=== PATIENT | female | born 1945 | race Caucasian/White ===

== ENCOUNTER 2017-02-17 12:34 | Outpatient (CLI) | payer MEDICARE ==
--- NOTE | 2017-02-17 15:55 | ULT ---
BILATERAL CAROTID DUPLEX ULTRASOUND: DATE: 02/17/17 HISTORY: Left carotid bruit. TECHNIQUE: Perez scale ultrasound with color flow and spectral Doppler imaging of the extracranial carotid arter y systems performed bilaterally. FINDINGS: There is plaque formation on either side. The peak systolic velocity in the right ICA measures 140 cm/second with an end-diastolic velocity of 29 cm/second and a systolic ratio of 1.33. The peak systolic velocity in the left ICA measures 86 cm/second with an end-diastolic velocity of 2 5 cm/second and a systolic ratio of 0.67. Flow in both vertebral arteries remains antegrade. IMPRESSION: 1. Moderate (50-69%) stenosis involving the right ICA. 2. Mild (less than 50%) stenosis involving the left ICA. POS: OFF
== END 2017-02-17 12:35 | disposition home or self-care (01) ==
LOC: SCSULT 12:34 → MERGE 13:00
PROVIDERS: ATTEND Internal Medicine
DX: I65.21 Occlusion and stenosis of right carotid artery (principal); I65.23 Occlusion and stenosis of bilateral carotid arteries
CPT/HCPCS: 93880

== ENCOUNTER 2017-04-06 17:32 | Inpatient (IN) | payer MEDICARE ==
[2017-04-06] MEDS ORDERED: Morphine 2 mg/2ml in 0.9% NaCl PF SYRINGE ONE (21:05)
--- NOTE | 2017-04-06 21:06 | PDOC.EVN ---
Event Note - Event Note Event Note: [id number] H&P dictated 1. Abdominal pain 2. Colitis 3. Acites PLAN: SEE ORDERS
[2017-04-06] MEDS ORDERED: Acetaminophen 325 MG TAB PO PRN (21:07)
[2017-04-06] MEDS: Sodium Chloride 0.9% 1,000 ML IV SCH (21:25)
[2017-04-06 23:40] VITALS: BMI 23.0
[2017-04-07] MEDS: Sodium Chloride 0.9% 1,000 ML IV SCH ×3 (00:13→16:11)
[2017-04-07] MEDS: metroNIDAZOLE 500 MG in Premix Bag 1 BAG IVPB SCH ×4 (00:14→20:43)
--- NOTE | 2017-04-07 00:56 | HP ---
DATE OF ADMISSION: 04/06/2017 CHIEF COMPLAINT: Abdominal pain. HISTORY OF PRESENT ILLNESS: The patient is a 71-year-old female with past medical history of hepatit is C, cirrhosis, diabetes mellitus type 2, now came to ER complaining of abdominal pain. The abdomin al pain started 2 weeks back. The abdominal pain is all over the abdomen, constant, no aggravating f actors, no relieving factor, associated with nausea also. The patient went to PCP 2 weeks back and h ad a CT abdomen done at that time in [place] and the patient was treated with antibiotics at that ti me, the CT did show small ascites and there is some inflammation in the right abdomen and the second and third portion of the duodenum, so the patient was treated with antibiotics. The patient said the symptoms did improve a little bit, but pain was persisted, that is why she came to the ER. The umu ent said the last bowel movement was 4 days back. Denies any fever, denies any chills, denies any ch est pain. PAST MEDICAL HISTORY: As per HPI. PAST SURGICAL HISTORY: Cholecystectomy, appendectomy, and tonsillectomy. SOCIAL HISTORY: Denies smoking, denies alcohol, denies any drugs. FAMILY HISTORY: Reviewed. REVIEW OF SYSTEMS: Constitutional: Denies any fever. Positive for chills. Eyes: Denies any visio n problems. Ears: Denies any hearing loss. Neck: Denies any neck pain. Cardiovascular system: D enies any chest pain, denies palpitations. Respiratory system: Denies any cough, denies sputum prod uction. Gastrointestinal: Positive for abdominal pain. Positive for nausea. Cranial nerve system: Denies syncope. Psychiatric: Denies depression or anxiety. Integumentary: Denies any rash. Mus culoskeletal. Denies any joint deformities. All other review of systems are reviewed and are negati ve. PHYSICAL EXAMINATION: CONSTITUTIONAL/VITAL SIGNS: At the time of H&P performed, blood pressure is 132/65, pulse ox 95%, he art rate 87, respiratory rate 20. GENERAL APPEARANCE: The patient appears comfortable. HEENT: Pupils are equal, round, and reactive to light. Anterior nares patent. Nose normal. Ears no rmal. Teeth intact. Tongue is moist. NECK: Supple, no JVD. CARDIOVASCULAR: S1 and S2 present. Regular rate and rhythm. No murmurs, no rubs, no gallops. RESPIRATORY: No wheezing, no rhonchi. Breath sounds bilaterally. GASTROINTESTINAL: Abdomen is distended, mild tender to palpate. No guarding, no organomegaly. MUSCULOSKELETAL: No edema. INTEGUMENTARY: No rashes seen. PSYCHIATRIC: Mood is appropriate at this time. LABORATORY DATA: At the time of H&P performed, white count 5.2, hemoglobin 13, and platelet count is 72. BMP showed sodium 137, potassium 3.5, chloride 104, CO2 of 24, BUN of 5, creatinine 0.76. IMAGING: CT abdomen and pelvis showed some ascites and evidence of cirrhosis or portal hypertension and there is mural thickening in the first and second portions of the duodenum also seen and there is mural thickening in the right colon and the transverse colon. ASSESSMENT AND PLAN: The patient is a 71-year-old female: 1. Acute colitis. Plan to start patient on IV Zosyn and Flagyl also and we will monitor the patient closely. We will go ahead and consult GI and General Surgery to evaluate the patient. 2. Nausea, p.r.n. antiemetics. 3. Cirrhosis and ascites. We will go ahead and consult GI to evaluate the patient. We will monitor the patient closely. 4. History of diabetes mellitus, type 2. Monitor blood sugars. We will do insulin sliding scale. The case was discussed in detail with the patient.
[2017-04-07] MEDS: Morphine 4 MG/ML VIAL SLOW IVP PRN ×3 (01:53→14:18)
[2017-04-07] MEDS: Ondansetron HCl/PF 4 MG/2 ML Vial IVP PRN ×4 (01:53→20:41)
[2017-04-07] MEDS: Piperacillin/Tazobactam 3.375 GM in Sodium Chloride 0.9% 100 ML IVPB SCH ×2 (02:00→07:33)
[2017-04-07 06:01] LABS: #Lymphocytes 0.8 thou/uL (1.20-3.40); %Basophils 0.9 % (0.0-1.0); %Eosinophils 0.3 % (0.0-10.0); %Lymphocytes 28.6 % (21.0-51.0); %Monocytes 1.3 % (0.0-10.0); Hematocrit 38.5 % (36.0-47.0); Mean Platelet Volume 7.6 fL (7.4-10.4); Red Blood Cell (RBC) Count 3.58 mill/uL (4.20-5.40); White Blood Cell (WBC) Count 2.9 thou/uL (4.8-10.8)
[2017-04-07 06:04] LABS: ALT (SGPT) 38 U/L (8-55); AST (SGOT) 43 U/L (5-34); Alkaline Phosphatase 183 U/L (40-150); Anion Gap 10 mmol/L (10-20); BUN (Urea Nitrogen) 10 mg/dL (9.8-20.1); Bilirubin, Total 2.1 mg/dL (0.2-1.2); Calc. Creatinine Clearance 68 mL/min (70-130); Calcium 8.3 mg/dL (7.8-10.44); Carbon Dioxide 22 mmol/L (23-31); Chloride 109 mmol/L (98-107); Estimated GFR-MDRD 79; Globulin 3.5 g/dL (2.4-3.5); Protein, Total 6.1 g/dL (6.0-8.3)
[2017-04-07] MEDS ORDERED: Mag-Al 1200 mg/1200 mg/30 ML UDCUP PO PRN (07:25)
[2017-04-07] MEDS ORDERED: Loratadine 10 MG TAB PO PRN (07:25)
[2017-04-07] MEDS ORDERED: Eucerin (Mineral Oil/Petrolatum,White) 30 gm Jar TOP PRN (07:25)
[2017-04-07] MEDS ORDERED: Ondansetron ODT 4 MG TAB PO PRN (07:25)
[2017-04-07] MEDS ORDERED: Sodium Chloride 0.65% Nasal 44 ML BOT EA NARE PRN (07:25)
[2017-04-07] MEDS ORDERED: hydrALAZINE 20 MG/ML VIAL SLOW IVP PRN (07:25)
[2017-04-07] MEDS ORDERED: Loperamide HCl 2 MG CAP PO PRN (07:25)
[2017-04-07] MEDS ORDERED: Diabetic Tussin 200 MG/10 ML UDCUP PO PRN (07:25)
[2017-04-07] MEDS: Saccharomyces boulardii 250 MG CAP PO SCH (08:10)
[2017-04-07] MEDS ORDERED: Famotidine/PF 20 mg/2ml Vial SLOW IVP SCH (09:00)
--- NOTE | 2017-04-07 11:23 | PDOC.PN ---
- Subjective Encounter Start Date: 04/07/17 Encounter Start Time: 10:10 -: old records requested/rev Patient seen and examined. No overnight events, has nausea, abdomen discomfort - Objective Resuscitation Status: Resuscitation Status FULL:Full Resuscitation MAR Reviewed: Yes Vital Signs & Weight: Vital Signs (12 hours) Temp Pulse Resp BP Pulse Ox 04/07/17 08:00 97.8 F 73 16 116/62 96 04/07/17 04:00 97.9 F 73 18 120/62 97 04/06/17 23:34 97.9 F 76 18 129/61 97 Weight Weight 134 lb 4 oz I&O: 04/06/17 04/07/17 04/08/17 06:59 06:59 06:59 Intake Total 360 Balance 360 Result Diagrams: 04/07/17 04:23 04/07/17 04:23 Additional Labs: Accuchecks 04/07/17 04/07/17 04:34 01:26 POC Glucose 251 H 241 H Radiology Reviewed by me: Yes (CT abdomen) Phys Exam - Physical Examination Constitutional: NAD HEENT: PERRLA, moist MMs, sclera anicteric Neck: no JVD, supple Respiratory: no wheezing, no rales, no rhonchi Cardiovascular: RRR, no significant murmur, no rub Gastrointestinal: soft, positive bowel sounds ascites+, discomfort diffuse Musculoskeletal: no edema, pulses present Neurological: non-focal, normal sensation, moves all 4 limbs Lymphatic: no nodes Psychiatric: normal affect, A&O x 3 Skin: no rash, normal turgor Dx/Plan (1) Colitis Code(s): K52.9 - NONINFECTIVE GASTROENTERITIS AND COLITIS, UNSPECIFIED Status : Acute (2) Duodenitis Code(s): K29.80 - DUODENITIS WITHOUT BLEEDING Status: Acute (3) Leucopenia Code(s): D72.819 - DECREASED WHITE BLOOD CELL COUNT, UNSPECIFIED Status: Acute (4) Macrocytosis Code(s): D75.89 - OTHER SPECIFIED DISEASES OF BLOOD AND BLOOD-FORMING ORGANS Status: Acute (5) Thrombocytopenia Code(s): D69.6 - THROMBOCYTOPENIA, UNSPECIFIED Status: Acute (6) Cirrhosis of liver with ascites Code(s): K74.60 - UNSPECIFIED CIRRHOSIS OF LIVER Status: Chronic (7) Diabetes type 2, controlled Code(s): E11.9 - TYPE 2 DIABETES MELLITUS WITHOUT COMPLICATIONS Status: Chronic (8) Hepatitis C Code(s): B19.20 - UNSPECIFIED VIRAL HEPATITIS C WITHOUT HEPATIC COMA Status: Chronic (9) Splenomegaly Code(s): R16.1 - SPLENOMEGALY, NOT ELSEWHERE CLASSIFIED Status: Chronic - Plan cont current plan of care, continue antibiotics * DC surgery consult * GI consulted * send stool for infection * continue levaquin and flayl * florastor * start clear liquid diet * continue selected home meds * medication reviewed as below * symptomatic treatment. Review of Systems - Review of Systems Constitutional: negative: Fever, Chills, Sweats, Weakness, Malaise, Other Eyes: negative: Pain, Vision Change, Conjunctivae Inflammation, Eyelid Inflammation, Redness, Other ENT: negative: Ear Pain, Ear Discharge, Nose Pain, Nose Discharge, Nose Congestion, Mouth Pain, Mouth Swelling, Throat Pain, Throat Swelling, Other Respiratory: negative: Cough, Dry, Shortness of Breath, Hemoptysis, SOB with Excertion, Pleuritic Pain, Sputum, Wheezing Cardiovascular: negative: Chest Pain, Palpitations, Orthopnea, Paroxysmal Noc. Dyspnea, Edema, Light Headedness, Other Gastrointestinal: Nausea, Abdominal Pain Genitourinary: negative: Dysuria, Frequency, Incontinence, Hematuria, Retention , Other Musculoskeletal: negative: Neck Pain, Shoulder Pain, Arm Pain, Back Pain, Hand Pain, Leg Pain, Foot Pain, Other Skin: negative: Rash, Lesions, Devin, Bruising, Other - Medications/Allergies Allergies/Adverse Reactions: Allergies Allergy/AdvReac Type Severity Reaction Status Date / Time aspirin Allergy Verified 04/06/17 21:18 codeine Allergy Verified 04/06/17 21:18 hydrocodone Allergy Verified 04/06/17 21:18 methylprednisolone Allergy Verified 04/06/17 21:18 [From Medrol] Sulfa (Sulfonamide Allergy Verified 04/06/17 21:18 Antibiotics) Medications: Current Medications Acetaminophen (Tylenol) 650 mg PO Q4H PRN PRN Reason: Headache/Fever or Pain Al Hydroxide/Mg Hydroxide (Maalox) 15 ml PO Q4H PRN PRN Reason: Heartburn or Indigestion Famotidine (Pepcid) 20 mg SLOW IVP Q12HR [facility] Last Admin: 04/07/17 08:10 Dose: 20 mg Gabapentin (Neurontin) 600 mg PO [facility] Guaifenesin (Robitussin Sf) 200 mg PO Q4H PRN PRN Reason: Cough Hydralazine HCl (Apresoline) 10 mg SLOW IVP Q4H PRN PRN Reason: Systolic BP > 180 Metronidazole 500 mg/ Device 100 mls @ 100 mls/hr IVPB Q8HR [facility] Last Admin: 04/07/17 06:06 Dose: 100 mls Sodium Chloride (Normal Saline 0.9%) 1,000 mls @ 100 mls/hr IV .Q10H [facility] Last Admin: 04/07/17 07:24 Dose: Not Given Levofloxacin 500 mg/ Device 100 mls @ 100 mls/hr IVPB 0800 [facility] Last Admin: 04/07/17 08:10 Dose: 100 mls Insulin Detemir 30 units/ (Miscellaneous Medication) 0.3 mls @ 0 mls/hr SC [facility] PRN Reason: As Directed Loperamide HCl (Imodium) 2 mg PO PRN PRN PRN Reason: Diarrhea/Loose Stools Loratadine (Claritin) 10 mg PO DAILYPRN PRN PRN Reason: Sinus Symptoms Mineral Oil/White Petrolatum (Eucerin Cream) 0 gm TOP BIDPRN PRN PRN Reason: Dry Skin Morphine Sulfate (Morphine) 2 mg SLOW IVP Q4H PRN PRN Reason: Pain Last Admin: 04/07/17 07:20 Dose: 2 mg Ondansetron HCl (Zofran) 4 mg IVP Q6H PRN PRN Reason: Nausea/Vomiting Last Admin: 04/07/17 07:20 Dose: 4 mg Ondansetron HCl (Zofran Odt) 4 mg PO Q6H PRN PRN Reason: Nausea/Vomiting Saccharomyces Boulardii (Florastor) 250 mg PO DAILY [facility] Last Admin: 04/07/17 08:10 Dose: 250 mg Sodium Chloride ([place] Nasal [place] 0.65%) 0 ml EA NARE QIDPRN PRN PRN Reason: Nasal Congestion Tramadol HCl (Ultram) 50 mg PO Q6H PRN PRN Reason: Pain Trazodone HCl (Desyrel) 50 mg PO [facility]
[2017-04-07] MEDS ORDERED: Dextrose 5% in Water 1,000 ML IV PRN (11:39)
[2017-04-07] MEDS ORDERED: Dextrose 50% Abboject 50 ML SYRINGE SLOW IVP PRN (11:39)
[2017-04-07] MEDS: HumaLOG 300 UNITS/3 ML VIAL SC PRN (13:11)
[2017-04-07] MEDS ORDERED: Diazepam 5 MG TAB PO SCH ×2 (16:00→22:15)
[2017-04-07] MEDS: Pantoprazole 40 MG VIAL IVP SCH (20:41)
[2017-04-07] MEDS: Gabapentin 300 MG CAP PO SCH (20:42)
[2017-04-07] MEDS: traZODone HCl 50 MG TAB PO SCH (20:42)
[2017-04-07] MEDS ORDERED: Non-Formulary Item 1 EACH (Insulin Glargine,Hum.Rec.Anlog 30 UNIT) SQ SCH (21:00)
[2017-04-07] MEDS ORDERED: Insulin Detemir 100 UNITS/ML 30 UNITS in Pre-Filled Syringe 1 EACH SC SCH (21:00)
[2017-04-08 04:45] LABS: #Basophils 0.1 thou/uL (0.0-0.2); #Eosinphils 0.2 thou/uL (0.0-0.7); #Monocytes 0.6 thou/uL (0.11-0.59); #Neutrophils 4.9 thou/uL (1.40-6.50); %Basophils 0.6 % (0.0-1.0); %Eosinophils 2.6 % (0.0-10.0); %Lymphocytes 25.8 % (21.0-51.0); %Monocytes 7.1 % (0.0-10.0); ALT (SGPT) 38 U/L (8-55); AST (SGOT) 47 U/L (5-34); Alkaline Phosphatase 160 U/L (40-150); Anion Gap 7 mmol/L (10-20); BUN (Urea Nitrogen) 14 mg/dL (9.8-20.1); Bilirubin, Total 1.6 mg/dL (0.2-1.2); Calc. Creatinine Clearance 71 mL/min (70-130); Calcium 7.9 mg/dL (7.8-10.44); Carbon Dioxide 25 mmol/L (23-31); Chloride 110 mmol/L (98-107); Estimated GFR-MDRD 82; Globulin 3.1 g/dL (2.4-3.5); Mean Platelet Volume 7.3 fL (7.4-10.4); Protein, Total 5.6 g/dL (6.0-8.3); Red Blood Cell (RBC) Count 3.15 mill/uL (4.20-5.40); White Blood Cell (WBC) Count 7.7 thou/uL (4.8-10.8)
[2017-04-08] MEDS: metroNIDAZOLE 500 MG in Premix Bag 1 BAG IVPB SCH ×3 (05:34→21:29)
[2017-04-08] MEDS: Sodium Chloride 0.9% 1,000 ML IV SCH ×2 (06:08→14:11)
--- NOTE | 2017-04-08 06:31 | CON ---
DATE OF CONSULTATION: 04/07/2017 REASON FOR CONSULTATION: Abdominal pain, "colitis." HISTORY OF PRESENT ILLNESS: Ms. Weems is a pleasant 71-year-old female who is accompanied by her sergio ghter here at the bedside who was admitted to the hospital secondary to ongoing abdominal pain of unc lear etiology. She states that she has got a long history of cirrhosis and hepatitis C; the hepatiti s C has not been treated. She had been seen by physicians in [facility], but about 2 years ago, she switched her primary care to Dr. Rodriguez in [place]. More recently, about 2 weeks ago, she began to have epigastric and upper abdominal pain with nausea and vomiting. It is worse with movement and worse with eating. She does not recall an exact precipitating event but she had a CAT scan in [facility] in the outpatient setting on 03/27/2017, which showed some changes of COPD, cirrhosis with splenom egaly and a small amount of ascites and some "inflammation" within the right abdomen, predominantly i nvolving second and third portions of duodenum and right colon; however, there was no contrast given on that study. In February, she had had a CT scan for low back pain with mild to moderate degenerativ e disk disease and no signs of spinal stenosis. She had a carotid Doppler study in February with mild to moderate stenosis. The patient had not had any bowel movement in 4 days, had some gas. Pain was fairly constant and wor sening up to a 10. She has had diverticulitis in the past but not anything like this. She denies an y alcohol use or NSAID use. She reports that she had been previously treated with some empiric antib iotics by her primary physician last week without really any improvement. The patient had a repeat C AT scan today that showed worsening ascites since the previous study on the . Small bowel loops not significant for distention, mural thickening in the first and second portion of the duodenum and in the colon, but the colon changes were less prominent. There was stool throughout the colon. Agai n, IV contrast was not used. Daughter notes that also she had some tremulous episodes and had to be given Valium for. Also, she h ad had a slight rash on her right arm. PAST MEDICAL HISTORY: Diabetes since age about 20. PAST SURGICAL HISTORY: Cholecystectomy, appendectomy, and tonsillectomy. She has had a colonoscopy within the past couple of years in [place], which was reported as normal. She also reports she had an upper endoscopy there. She does not recall if she was ever told she had varices but she does not re cognize that term. ALLERGIES: Include ASPIRIN, CODEINE, HYDROCODONE, METHYLPREDNISOLONE, and SULFA DRUGS. SOCIAL HISTORY: The patient does not smoke, does not drink alcohol or use drugs. FAMILY HISTORY: Negative for colorectal cancer or liver disease. REVIEW OF SYSTEMS: Negative for weight loss, dysphagia, odynophagia, jaundice, or icterus. She does feel more bloated and swollen. She does have a history of chronic constipation. MEDICATIONS: Medications here, Tylenol, Maalox, D5 normal p.r.n., Pepcid 20 mg IV q.12 hours, Neuron tin, glucagon, hydralazine, insulin p.r.n., levofloxacin, loperamide, metronidazole, Ultram p.r.n., n ormal saline 100 an hour. PHYSICAL EXAMINATION: VITAL SIGNS: Temperature is 98, pulse 76, blood pressure is 115/65. LUNGS: Clear. HEART: Regular rate and rhythm without clicks or murmurs. ABDOMEN: Soft, mildly protuberant. There is no palpable hepatosplenomegaly. There is no rebound. There is no guarding. There is no evidence of inguinal hernias or midline hernias. EXTREMITIES: Reveal no clubbing, cyanosis or edema. There is mild spider angioma on the chest and b ack. LABORATORY STUDIES: White count 2.9, hemoglobin 12.7, platelet count 73,000, very similar to her cou nts since January. INR 1.3. Chemistries notable for sodium 137, potassium 4, chloride 109, bicarb chago 22, BUN and creatinine are 10 and 0.73, glucose 257, total bilirubin 2.1, AST and ALT are 43 an d 38, alkaline phosphatase 23, albumin 2.7. ASSESSMENT: Acute abdominal pain. She does have some thickening in the first and second portions of the duodenum. I reviewed those scans. There are no signs of bowel obstruction. She is not vomitin g. The pancreas does appear normal. Lipase was checked, which was normal at 28. Differential diagn osis includes peptic ulcer disease. She does not have a gallbladder any more. Biliary tract disease seems unlikely. Acute portal vein thrombosis could cause pain and cause new-onset ascites and that may be what is going on and that maybe being missed because she has had imaging with no contrast. Al ternatively, liver malignancy would be a concern as well. She has longstanding cirrhosis and now sig nificant pain and developing ascites. I suspect inflammatory changes in the upper abdomen are more r elated to portal hypertension than "colitis" as she shows no symptoms of colitis such as diarrhea or bleeding. RECOMMENDATIONS: 1. Change her to IV Protonix. 2. MRI 3 phase of the liver to evaluate for liver masses and also rule out acute portal vein thrombo sis. 3. EGD. 4. With regard to the CT scan changes, she has no signs of colitis. She has had a colonoscopy withi n the past couple of years that had been normal. I think these changes are probably more edematous c nithin.
[2017-04-08] MEDS: Saccharomyces boulardii 250 MG CAP PO SCH (08:05)
[2017-04-08] MEDS: Pantoprazole 40 MG VIAL IVP SCH ×2 (08:06→21:29)
[2017-04-08] MEDS: Ondansetron HCl/PF 4 MG/2 ML Vial IVP PRN (11:07)
--- NOTE | 2017-04-08 12:47 | PDOC.PN ---
- Subjective Encounter Start Date: 04/08/17 Encounter Start Time: 08:00 Subjective: had a episode of shaking last night which got resolved with valium -: no nausea now -: abd pain is better - Objective Resuscitation Status: Resuscitation Status FULL:Full Resuscitation MAR Reviewed: Yes Vital Signs & Weight: Vital Signs (12 hours) Temp Pulse Resp BP Pulse Ox 04/08/17 10:55 97.6 F 74 18 122/67 94 L 04/08/17 08:00 97.8 F 77 18 120/61 94 L 04/08/17 04:51 97.8 F 83 18 103/53 L 92 L Weight Admit Weight 134 lb Weight 134 lb I&O: 04/07/17 04/08/17 04/09/17 06:59 06:59 06:59 Intake Total 2420 Balance 2420 Result Diagrams: 04/08/17 03:06 04/08/17 03:06 Additional Labs: Accuchecks 04/08/17 04/08/17 04/08/17 12:33 10:59 04:50 POC Glucose 142 H 76 121 H 04/07/17 04/07/17 20:02 16:38 POC Glucose 305 H 266 H Phys Exam - Physical Examination HEENT: PERRLA, moist MMs Neck: no JVD, supple Respiratory: no wheezing, no rales Cardiovascular: RRR, no significant murmur Gastrointestinal: soft, no distention, positive bowel sounds Musculoskeletal: no edema, pulses present Neurological: non-focal, moves all 4 limbs Psychiatric: A&O x 3 Dx/Plan (1) Abdominal pain Code(s): R10.9 - UNSPECIFIED ABDOMINAL PAIN Status: Acute Qualifiers: Abdominal location: right upper quadrant Qualified Code(s): R10.11 - Right upper quadrant pain (2) Thrombocytopenia Code(s): D69.6 - THROMBOCYTOPENIA, UNSPECIFIED Status: Chronic (3) Cirrhosis of liver with ascites Code(s): K74.60 - UNSPECIFIED CIRRHOSIS OF LIVER Status: Chronic (4) Diabetes type 2, controlled Code(s): E11.9 - TYPE 2 DIABETES MELLITUS WITHOUT COMPLICATIONS Status: Chronic Qualifiers: Diabetes mellitus complication status: with unspecified complications Diabetes mellitus manager terminal insulin use: with halfway use Qualified Code(s) : E11.8 - Type 2 diabetes mellitus with unspecified complications; Z79.4 - terminal operations manager (current) use of insulin; Z79.4 - terminal operations manager (current) use of insulin; Z79.4 - terminal operations manager (current) use of insulin; Z79.4 - terminal operations manager (current) use of insulin (5) Hepatitis C Code(s): B19.20 - UNSPECIFIED VIRAL HEPATITIS C WITHOUT HEPATIC COMA Status: Chronic Qualifiers: Viral hepatitis chronicity: chronic Hepatic coma status: without hepatic coma Qualified Code(s): B18.2 - Chronic viral hepatitis C - Plan has elevated AFP, await MRI liver protocol -: is npo for EGD today -: continue gentle iv hydration until above are done -: hold insulin for now, is on levaquin and flagyl, may dc if ok with -: avoid valium in view of liver disease * . Review of Systems - Medications/Allergies Allergies/Adverse Reactions: Allergies Allergy/AdvReac Type Severity Reaction Status Date / Time aspirin Allergy Verified 04/06/17 21:18 codeine Allergy Verified 04/06/17 21:18 hydrocodone Allergy Verified 04/06/17 21:18 iodine Allergy Verified 04/08/17 10:46 methylprednisolone Allergy Verified 04/06/17 21:18 [From Medrol] Sulfa (Sulfonamide Allergy Verified 04/06/17 21:18 Antibiotics) Medications: Current Medications Acetaminophen (Tylenol) 650 mg PO Q4H PRN PRN Reason: Headache/Fever or Pain Al Hydroxide/Mg Hydroxide (Maalox) 15 ml PO Q4H PRN PRN Reason: Heartburn or Indigestion Dextrose/Water (Dextrose 50%) 25 gm SLOW IVP PRN PRN PRN Reason: Hypoglycemia Last Admin: 04/08/17 11:26 Dose: 25 gm Gabapentin (Neurontin) 600 mg PO HS [facility] Last Admin: 04/07/17 20:42 Dose: 600 mg Glucagon (Glucagon) 1 mg IM PRN PRN PRN Reason: Hypoglycemia Guaifenesin (Robitussin Sf) 200 mg PO Q4H PRN PRN Reason: Cough Hydralazine HCl (Apresoline) 10 mg SLOW IVP Q4H PRN PRN Reason: Systolic BP > 180 Metronidazole 500 mg/ Device 100 mls @ 100 mls/hr IVPB Q8HR [facility] Last Admin: 04/08/17 05:34 Dose: 100 mls Sodium Chloride (Normal Saline 0.9%) 1,000 mls @ 100 mls/hr IV .Q10H [facility] Last Admin: 04/08/17 06:08 Dose: Not Given Levofloxacin 500 mg/ Device 100 mls @ 100 mls/hr IVPB 0800 [facility] Last Admin: 04/08/17 08:03 Dose: 100 mls Dextrose/Water (D5w) 1,000 mls @ 0 mls/hr IV .Q0M PRN; As Directed PRN Reason: Hypoglycemia Insulin Human Lispro (Humalog) 0 units SC .MODERATE SLIDING SC PRN PRN Reason: Moderate Correctional Scale Last Admin: 04/07/17 13:11 Dose: 6 unit Insulin Human Lispro (Humalog) 0 units SC .BEDTIME SLIDING SC PRN PRN Reason: Bedtime Correctional Scale Loperamide HCl (Imodium) 2 mg PO PRN PRN PRN Reason: Diarrhea/Loose Stools Loratadine (Claritin) 10 mg PO DAILYPRN PRN PRN Reason: Sinus Symptoms Mineral Oil/White Petrolatum (Eucerin Cream) 0 gm TOP BIDPRN PRN PRN Reason: Dry Skin Morphine Sulfate (Morphine) 2 mg SLOW IVP Q4H PRN PRN Reason: Pain Last Admin: 04/07/17 14:18 Dose: 2 mg Ondansetron HCl (Zofran) 4 mg IVP Q6H PRN PRN Reason: Nausea/Vomiting Last Admin: 04/08/17 11:07 Dose: 4 mg Ondansetron HCl (Zofran Odt) 4 mg PO Q6H PRN PRN Reason: Nausea/Vomiting Pantoprazole Sodium (Protonix) 40 mg IVP Q12HR [facility] Last Admin: 04/08/17 08:06 Dose: 40 mg Saccharomyces Boulardii (Florastor) 250 mg PO DAILY [facility] Last Admin: 04/08/17 08:05 Dose: 250 mg Sodium Chloride ([place] Nasal [place] 0.65%) 0 ml EA NARE QIDPRN PRN PRN Reason: Nasal Congestion Sodium Chloride (Flush - Normal Saline) 10 ml IVF PRN PRN PRN Reason: Saline Flush Sodium Chloride (Flush - Normal Saline) 10 ml IV Q12HR [facility] Last Admin: 04/08/17 08:11 Dose: 10 ml Tramadol HCl (Ultram) 50 mg PO Q6H PRN PRN Reason: Pain Trazodone HCl (Desyrel) 50 mg PO HS [facility] Last Admin: 04/07/17 20:42 Dose: 50 mg
[2017-04-08] MEDS ORDERED: Lidocaine 1% PF 5 ML VIAL ONE (15:13)
[2017-04-08] MEDS ORDERED: Promethazine HCl 25 MG/ML VIAL SLOW IVP PRN (15:54)
[2017-04-08] MEDS ORDERED: Ondansetron HCl/PF 4 MG/2 ML Vial IVP PRN (15:54)
[2017-04-08] MEDS ORDERED: Fentanyl 100 MCG/2 ML VIAL ONE (16:30)
[2017-04-08] MEDS: Morphine 4 MG/ML VIAL SLOW IVP PRN ×2 (17:48→21:40)
--- NOTE | 2017-04-08 18:18 | OP ---
DATE OF PROCEDURE: 04/08/2017 PROCEDURE: Esophagogastroduodenoscopy. PREOPERATIVE DIAGNOSES: Epigastric to diffuse abdominal pain. She has cirrhosis. OPERATIVE NOTE: Informed consent was obtained from the patient. She was sedated with total intraven ous anesthesia. The bite block was placed and the endoscope was advanced easily to the second portio n of the duodenum and retroflexion was performed in the stomach. The esophagus had moderate grade 2- 3 varices with a few red signs. She had moderate portal hypertensive gastropathy. There were no gas tric varices noted on retroflexed views. The pylorus and first and second portions of the duodenum w ere normal. IMPRESSION: 1. 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 2. Moderate portal hypertensive gastropathy. No gastric varices. 3. Otherwise normal esophagogastroduodenoscopy. RECOMMENDATIONS: 1. Start nadolol 20 mg daily. 2. If she does not tolerate the nadolol or if she has a problem with low blood sugars, then banding can be performed. 3. Alpha fetoprotein is noted to be elevated. We will await the MRI of the liver, which has been sc heduled.
[2017-04-08] MEDS: traMADol HCl 50 MG TAB PO PRN (18:19)
[2017-04-08] MEDS: traZODone HCl 50 MG TAB PO SCH (21:30)
[2017-04-08] MEDS: Gabapentin 300 MG CAP PO SCH (21:30)
[2017-04-09] MEDS: traMADol HCl 50 MG TAB PO PRN (00:08)
[2017-04-09] MEDS: Sodium Chloride 0.9% 1,000 ML IV SCH ×2 (00:18→10:14)
[2017-04-09] MEDS: Morphine 4 MG/ML VIAL SLOW IVP PRN ×2 (05:29→10:35)
[2017-04-09] MEDS: metroNIDAZOLE 500 MG in Premix Bag 1 BAG IVPB SCH ×3 (05:30→20:56)
[2017-04-09] MEDS ORDERED: Chloraseptic Spray 180 ml Bottle PO PRN (08:32)
[2017-04-09] MEDS: Saccharomyces boulardii 250 MG CAP PO SCH (10:12)
[2017-04-09] MEDS: Nadolol 40 MG TAB PO SCH (10:12)
[2017-04-09] MEDS: Pantoprazole 40 MG VIAL IVP SCH ×2 (10:13→20:56)
[2017-04-09] MEDS: Ondansetron HCl/PF 4 MG/2 ML Vial IVP PRN (10:29)
[2017-04-09] MEDS ORDERED: Bisacodyl 5 MG TAB PO PRN (12:10)
[2017-04-09] MEDS ORDERED: diphenhydrAMINE 25 MG CAP PO SCH (12:30)
--- NOTE | 2017-04-09 13:06 | PDOC.PN ---
- Subjective Encounter Start Date: 04/09/17 Encounter Start Time: 09:00 Subjective: abd pain is better -: no nausea or vomiting - Objective Resuscitation Status: Resuscitation Status FULL:Full Resuscitation MAR Reviewed: Yes Vital Signs & Weight: Vital Signs (12 hours) Temp Pulse Resp BP Pulse Ox 04/09/17 08:10 98.6 F 96 16 124/56 L 91 L 04/09/17 08:00 98.6 F 96 16 93 L Weight Admit Weight 134 lb Weight 134 lb I&O: 04/08/17 04/09/17 04/10/17 06:59 06:59 06:59 Intake Total 2420 120 Balance 2420 120 Result Diagrams: 04/08/17 03:06 04/08/17 03:06 Additional Labs: Accuchecks 04/09/17 04/09/17 04/08/17 11:07 05:22 20:21 POC Glucose 169 H 133 H 158 H 04/08/17 17:22 POC Glucose 93 Phys Exam - Physical Examination HEENT: PERRLA, moist MMs Neck: no JVD, supple Respiratory: no wheezing, no rales Cardiovascular: RRR, no significant murmur Gastrointestinal: soft, no distention Musculoskeletal: no edema, pulses present Neurological: non-focal, moves all 4 limbs Psychiatric: A&O x 3 Dx/Plan (1) Abdominal pain Code(s): R10.9 - UNSPECIFIED ABDOMINAL PAIN Status: Acute Qualifiers: Abdominal location: right upper quadrant Qualified Code(s): R10.11 - Right upper quadrant pain (2) Thrombocytopenia Code(s): D69.6 - THROMBOCYTOPENIA, UNSPECIFIED Status: Chronic (3) Cirrhosis of liver with ascites Code(s): K74.60 - UNSPECIFIED CIRRHOSIS OF LIVER Status: Chronic (4) Diabetes type 2, controlled Code(s): E11.9 - TYPE 2 DIABETES MELLITUS WITHOUT COMPLICATIONS Status: Chronic Qualifiers: Diabetes mellitus complication status: with unspecified complications Diabetes mellitus custodial insulin use: with custodial use Qualified Code(s) : E11.8 - Type 2 diabetes mellitus with unspecified complications; Z79.4 - ferry terminal agent (current) use of insulin; Z79.4 - residential (current) use of insulin; Z79.4 - residential (current) use of insulin; Z79.4 - ferry terminal agent (current) use of insulin (5) Hepatitis C Code(s): B19.20 - UNSPECIFIED VIRAL HEPATITIS C WITHOUT HEPATIC COMA Status: Chronic Qualifiers: Viral hepatitis chronicity: chronic Hepatic coma status: without hepatic coma Qualified Code(s): B18.2 - Chronic viral hepatitis C - 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 Review of Systems - Medications/Allergies Allergies/Adverse Reactions: Allergies Allergy/AdvReac Type Severity Reaction Status Date / Time aspirin Allergy Verified 04/06/17 21:18 codeine Allergy Verified 04/06/17 21:18 hydrocodone Allergy Verified 04/06/17 21:18 iodine Allergy Verified 04/08/17 10:46 methylprednisolone Allergy Verified 04/06/17 21:18 [From Medrol] Sulfa (Sulfonamide Allergy Verified 04/06/17 21:18 Antibiotics) Medications: Current Medications Acetaminophen (Tylenol) 650 mg PO Q4H PRN PRN Reason: Headache/Fever or Pain Al Hydroxide/Mg Hydroxide (Maalox) 15 ml PO Q4H PRN PRN Reason: Heartburn or Indigestion Bisacodyl (Dulcolax) 5 mg PO HSPRN PRN PRN Reason: CONSTIPATION Dextrose/Water (Dextrose 50%) 25 gm SLOW IVP PRN PRN PRN Reason: Hypoglycemia Last Admin: 04/08/17 11:26 Dose: 25 gm Diphenhydramine HCl (Benadryl) 25 mg PO NOW [facility] Stop: 04/09/17 14:30 Last Admin: 04/09/17 12:34 Dose: 25 mg Gabapentin (Neurontin) 600 mg PO HS [facility] Last Admin: 04/08/17 21:30 Dose: 600 mg Glucagon (Glucagon) 1 mg IM PRN PRN PRN Reason: Hypoglycemia Guaifenesin (Robitussin Sf) 200 mg PO Q4H PRN PRN Reason: Cough Hydralazine HCl (Apresoline) 10 mg SLOW IVP Q4H PRN PRN Reason: Systolic BP > 180 Metronidazole 500 mg/ Device 100 mls @ 100 mls/hr IVPB Q8HR [facility] Last Admin: 04/09/17 05:30 Dose: 100 mls Sodium Chloride (Normal Saline 0.9%) 1,000 mls @ 100 mls/hr IV .Q10H [facility] Last Admin: 04/09/17 10:14 Dose: Not Given Levofloxacin 500 mg/ Device 100 mls @ 100 mls/hr IVPB 0800 [facility] Last Admin: 04/09/17 10:11 Dose: 100 mls Dextrose/Water (D5w) 1,000 mls @ 0 mls/hr IV .Q0M PRN; As Directed PRN Reason: Hypoglycemia Insulin Human Lispro (Humalog) 0 units SC .MODERATE SLIDING SC PRN PRN Reason: Moderate Correctional Scale Last Admin: 04/07/17 13:11 Dose: 6 unit Insulin Human Lispro (Humalog) 0 units SC .BEDTIME SLIDING SC PRN PRN Reason: Bedtime Correctional Scale Loperamide HCl (Imodium) 2 mg PO PRN PRN PRN Reason: Diarrhea/Loose Stools Loratadine (Claritin) 10 mg PO DAILYPRN PRN PRN Reason: Sinus Symptoms Mineral Oil/White Petrolatum (Eucerin Cream) 0 gm TOP BIDPRN PRN PRN Reason: Dry Skin Morphine Sulfate (Morphine) 2 mg SLOW IVP Q4H PRN PRN Reason: Pain Last Admin: 04/09/17 10:35 Dose: 2 mg Nadolol (Corgard) 40 mg PO DAILY [facility] Last Admin: 04/09/17 10:12 Dose: 40 mg Ondansetron HCl (Zofran) 4 mg IVP Q6H PRN PRN Reason: Nausea/Vomiting Last Admin: 04/09/17 10:29 Dose: 4 mg Ondansetron HCl (Zofran Odt) 4 mg PO Q6H PRN PRN Reason: Nausea/Vomiting Pantoprazole Sodium (Protonix) 40 mg IVP Q12HR [facility] Last Admin: 04/09/17 10:13 Dose: 40 mg Phenol (Chloraseptic [place] 180 Ml Bot) 0 ml PO TIDPRN PRN PRN Reason: THROAT PAIN Last Admin: 04/09/17 10:10 Dose: 1 spr Saccharomyces Boulardii (Florastor) 250 mg PO DAILY [facility] Last Admin: 04/09/17 10:12 Dose: 250 mg Sodium Chloride ([place] Nasal [place] 0.65%) 0 ml EA NARE QIDPRN PRN PRN Reason: Nasal Congestion Sodium Chloride (Flush - Normal Saline) 10 ml IVF PRN PRN PRN Reason: Saline Flush Sodium Chloride (Flush - Normal Saline) 10 ml IV Q12HR [facility] Last Admin: 04/09/17 10:13 Dose: 10 ml Tramadol HCl (Ultram) 50 mg PO Q6H PRN PRN Reason: Pain Last Admin: 04/09/17 00:08 Dose: 50 mg Trazodone HCl (Desyrel) 50 mg PO HS [facility] Last Admin: 04/08/17 21:30 Dose: 50 mg
[2017-04-09] MEDS ORDERED: Polyethylene Glycol 3350 17 GM Packet PO SCH (14:30)
--- NOTE | 2017-04-09 18:05 | PRG ---
DATE OF SERVICE: 04/09/2017 SUBJECTIVE: Ms. Weems states her abdominal pain is better. She has had no bowel movements. She is supposed to get a Dulcolax suppository. She had an EGD yesterday, which showed portal gastropathy an d grade II varices with some red vanessa signs. She has been started on nadolol 40 mg p.o. q. day. She is without complaints today. OBJECTIVE: VITAL SIGNS: Temperature is 98, pulse 96, blood pressure is 124/56. LUNGS: Clear. CARDIAC: Regular without clicks or murmurs. ABDOMEN: Soft, mildly protuberant. There is no rebound. There is no guarding. LABORATORY STUDIES: None today. ASSESSMENT: 1. Hepatitis C. 2. Cirrhosis. 3. AST mildly elevated to 100. 4. Upper abdominal pain. I suspect this can be related to subacute portal vein thrombosis, imaging has failed to reveal this so far as she has had no contrasting imaging. She is going to have an MRI today, 3-phase of liver, but MRI machine is broken. PLAN: 1. We will order CT with oral and IV contrast of the abdomen with 3-phase liver evaluation. She has been started on steroids and Benadryl and that probably will happen for her at least 12 hours. 2. Constipation. Recommend MiraLax daily.
[2017-04-09] MEDS ORDERED: predniSONE 50 MG TAB PO SCH (20:00)
[2017-04-09] MEDS: Gabapentin 300 MG CAP PO SCH (20:55)
[2017-04-09] MEDS: traZODone HCl 50 MG TAB PO SCH (20:55)
[2017-04-09] MEDS: diphenhydrAMINE 25 MG CAP PO PRN (21:30)
[2017-04-10] MEDS ORDERED: predniSONE 50 MG TAB PO SCH ×2 (02:00→08:00)
[2017-04-10] MEDS: diphenhydrAMINE 25 MG CAP PO PRN (02:31)
[2017-04-10] MEDS: metroNIDAZOLE 500 MG in Premix Bag 1 BAG IVPB SCH (05:32)
[2017-04-10] MEDS ORDERED: diphenhydrAMINE 50 MG CAP PO SCH (08:00)
[2017-04-10 08:17] LABS: #Basophils 0.1 thou/uL (0.0-0.2); #Eosinphils 0.1 thou/uL (0.0-0.7); #Lymphocytes 1.3 thou/uL (1.20-3.40); #Monocytes 0.1 thou/uL (0.11-0.59); #Neutrophils 3.1 thou/uL (1.40-6.50); %Basophils 1.1 % (0.0-1.0); %Eosinophils 2.9 % (0.0-10.0); %Lymphocytes 27.2 % (21.0-51.0); %Monocytes 1.4 % (0.0-10.0); Hematocrit 41.8 % (36.0-47.0); Mean Platelet Volume 7.7 fL (7.4-10.4); Red Blood Cell (RBC) Count 3.87 mill/uL (4.20-5.40); White Blood Cell (WBC) Count 4.6 thou/uL (4.8-10.8)
[2017-04-10 08:30] LABS: ALT (SGPT) 47 U/L (8-55); AST (SGOT) 44 U/L (5-34); Alkaline Phosphatase 176 U/L (40-150); Anion Gap 10 mmol/L (10-20); BUN (Urea Nitrogen) 17 mg/dL (9.8-20.1); Calc. Creatinine Clearance 60 mL/min (70-130); Calcium 8.3 mg/dL (7.8-10.44); Carbon Dioxide 24 mmol/L (23-31); Chloride 107 mmol/L (98-107); Estimated GFR-MDRD 68; Globulin 3.4 g/dL (2.4-3.5); Protein, Total 5.9 g/dL (6.0-8.3)
--- NOTE | 2017-04-10 10:03 | CT ---
CT ABDOMEN AND EPLVIS WITH AND WITHOUT CONTRAST: HISTORY: Liver mass protocol. Evaluate for portal vein thrombosis. COMPARISON: CT abdomen and pelvis 06/06/16. FINDINGS: There is near-complete thrombosis of the superior mesenteric vein seen to the portal vein. There is arterial hyperenhancement of the portal venous due to cavernous transformation from the hepatic arter ies. The spleen is enlarged. There appears to be some peripheral splenic hypoenhancement near the anterio r and posterior margins. The hepatic contour is nodular. Evaluation for hepatic mass is limited. Moderate ascites. Congestive changes of the ascending colon. Dense calcifications of the aorta. Ex tensive atherosclerotic plaque of the aortoiliac system. The kidneys are unremarkable. Adrenal glands are unremarkable. There are congestive changes of the proximal small bowel including duodenum. IMPRESSION: 1. 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 This limits evaluation for underlying mass. Evaluation for hepatic mass has to be performed with a liver protocol MRI abdomen. 2. Congestive changes of the ascending colon and duodenum. 3. Cirrhosis, portal hypertension, and splenomegaly. POS: [facility]
[2017-04-10] MEDS: Saccharomyces boulardii 250 MG CAP PO SCH (10:18)
[2017-04-10] MEDS: Polyethylene Glycol 3350 17 GM Packet PO SCH (10:18)
[2017-04-10] MEDS: Nadolol 40 MG TAB PO SCH (10:18)
[2017-04-10] MEDS: HumaLOG 300 UNITS/3 ML VIAL SC PRN ×3 (13:33→21:16)
--- NOTE | 2017-04-10 14:56 | PDOC.PN ---
- Subjective Encounter Start Date: 04/10/17 Encounter Start Time: 12:00 Subjective: mild abd dyscomfort, no nausea - Objective Resuscitation Status: Resuscitation Status FULL:Full Resuscitation MAR Reviewed: Yes Vital Signs & Weight: Vital Signs (12 hours) Temp Pulse Resp BP Pulse Ox 04/10/17 08:00 97.5 F L 59 L 12 95 04/10/17 07:52 97.5 F L 59 L 12 133/65 95 Weight Admit Weight 134 lb Weight 134 lb I&O: 04/09/17 04/10/17 04/11/17 06:59 06:59 06:59 Intake Total 1120 300 Balance 1120 300 Result Diagrams: 04/10/17 08:00 04/10/17 08:00 Additional Labs: Accuchecks 04/10/17 04/10/17 04/09/17 11: 04:40 20:49 POC Glucose 286 H 178 H 225 H 04/09/17 16:36 POC Glucose 200 H Phys Exam - Physical Examination HEENT: PERRLA, moist MMs Neck: no JVD, supple Respiratory: no wheezing, no rales Cardiovascular: RRR, no significant murmur Gastrointestinal: soft, positive bowel sounds no rigidity Musculoskeletal: no edema, pulses present Neurological: non-focal, moves all 4 limbs Psychiatric: A&O x 3 Dx/Plan (1) Abdominal pain Code(s): R10.9 - UNSPECIFIED ABDOMINAL PAIN Status: Acute Qualifiers: Abdominal location: right upper quadrant Qualified Code(s): R10.11 - Right upper quadrant pain (2) Thrombocytopenia Code(s): D69.6 - THROMBOCYTOPENIA, UNSPECIFIED Status: Chronic (3) Cirrhosis of liver with ascites Code(s): K74.60 - UNSPECIFIED CIRRHOSIS OF LIVER Status: Chronic (4) Diabetes type 2, controlled Code(s): E11.9 - TYPE 2 DIABETES MELLITUS WITHOUT COMPLICATIONS Status: Chronic Qualifiers: Diabetes mellitus complication status: with unspecified complications Diabetes mellitus usp insulin use: with usp use Qualified Code(s) : E11.8 - Type 2 diabetes mellitus with unspecified complications; Z79.4 - terminologist (current) use of insulin; Z79.4 - [facility] (current) use of insulin; Z79.4 - terminologist (current) use of insulin; Z79.4 - terminologist (current) use of insulin (5) Hepatitis C Code(s): B19.20 - UNSPECIFIED VIRAL HEPATITIS C WITHOUT HEPATIC COMA Status: Chronic Qualifiers: Viral hepatitis chronicity: chronic Hepatic coma status: without hepatic coma Qualified Code(s): B18.2 - Chronic viral hepatitis C (6) Portal vein thrombosis Code(s): I81 - PORTAL VEIN THROMBOSIS Status: Acute - Plan CT abd results reviewed, portal and smv are thrombosed -: liver mass could not be identified on CT per radiology -: ?MRI per GI advice, will dc antibiotics -: not sure if she will need referal, will await opinion -: likely has ishemic enteritis with back pressure? * . Review of Systems - Medications/Allergies Allergies/Adverse Reactions: Allergies Allergy/AdvReac Type Severity Reaction Status Date / Time aspirin Allergy Verified 04/06/17 21:18 codeine Allergy Verified 04/06/17 21:18 hydrocodone Allergy Verified 04/06/17 21:18 iodine Allergy Verified 04/08/17 10:46 methylprednisolone Allergy Verified 04/06/17 21:18 [From Medrol] Sulfa (Sulfonamide Allergy Verified 04/06/17 21:18 Antibiotics) Medications: Current Medications Acetaminophen (Tylenol) 650 mg PO Q4H PRN PRN Reason: Headache/Fever or Pain Al Hydroxide/Mg Hydroxide (Maalox) 15 ml PO Q4H PRN PRN Reason: Heartburn or Indigestion Bisacodyl (Dulcolax) 5 mg PO HSPRN PRN PRN Reason: CONSTIPATION Dextrose/Water (Dextrose 50%) 25 gm SLOW IVP PRN PRN PRN Reason: Hypoglycemia Last Admin: 04/08/17 11:26 Dose: 25 gm Diphenhydramine HCl (Benadryl) 25 mg PO Q6H PRN PRN Reason: Itching & Insomnia Last Admin: 04/10/17 02:31 Dose: 25 mg Gabapentin (Neurontin) 600 mg PO HS [facility] Last Admin: 04/09/17 20:55 Dose: 600 mg Glucagon (Glucagon) 1 mg IM PRN PRN PRN Reason: Hypoglycemia Guaifenesin (Robitussin Sf) 200 mg PO Q4H PRN PRN Reason: Cough Hydralazine HCl (Apresoline) 10 mg SLOW IVP Q4H PRN PRN Reason: Systolic BP > 180 Dextrose/Water (D5w) 1,000 mls @ 0 mls/hr IV .Q0M PRN; As Directed PRN Reason: Hypoglycemia Insulin Human Lispro (Humalog) 0 units SC .MODERATE SLIDING SC PRN PRN Reason: Moderate Correctional Scale Last Admin: 04/10/17 13:33 Dose: 6 unit Insulin Human Lispro (Humalog) 0 units SC .BEDTIME SLIDING SC PRN PRN Reason: Bedtime Correctional Scale Loperamide HCl (Imodium) 2 mg PO PRN PRN PRN Reason: Diarrhea/Loose Stools Loratadine (Claritin) 10 mg PO DAILYPRN PRN PRN Reason: Sinus Symptoms Mineral Oil/White Petrolatum (Eucerin Cream) 0 gm TOP BIDPRN PRN PRN Reason: Dry Skin Morphine Sulfate (Morphine) 2 mg SLOW IVP Q4H PRN PRN Reason: Pain Last Admin: 04/09/17 10:35 Dose: 2 mg Nadolol (Corgard) 40 mg PO DAILY [facility] Last Admin: 04/10/17 10:18 Dose: 40 mg Ondansetron HCl (Zofran) 4 mg IVP Q6H PRN PRN Reason: Nausea/Vomiting Last Admin: 04/09/17 10:29 Dose: 4 mg Ondansetron HCl (Zofran Odt) 4 mg PO Q6H PRN PRN Reason: Nausea/Vomiting Pantoprazole Sodium (Protonix) 40 mg PO BID [facility] Last Admin: 04/10/17 10:18 Dose: 40 mg Phenol (Chloraseptic [place] 180 Ml Bot) 0 ml PO TIDPRN PRN PRN Reason: THROAT PAIN Last Admin: 04/09/17 10:10 Dose: 1 spr Polyethylene Glycol (Miralax) 17 gm PO DAILY [facility] Last Admin: 04/10/17 10:18 Dose: 17 gm Saccharomyces Boulardii (Florastor) 250 mg PO DAILY [facility] Last Admin: 04/10/17 10:18 Dose: 250 mg Sodium Chloride ([place] Nasal [place] 0.65%) 0 ml EA NARE QIDPRN PRN PRN Reason: Nasal Congestion Sodium Chloride (Flush - Normal Saline) 10 ml IVF PRN PRN PRN Reason: Saline Flush Sodium Chloride (Flush - Normal Saline) 10 ml IV Q12HR [facility] Last Admin: 04/10/17 10:19 Dose: 10 ml Tramadol HCl (Ultram) 50 mg PO Q6H PRN PRN Reason: Pain Last Admin: 04/09/17 00:08 Dose: 50 mg Trazodone HCl (Desyrel) 50 mg PO HS [facility] Last Admin: 04/09/17 20:55 Dose: 50 mg
[2017-04-10 15:46] LABS: Prothrombin Time 21.7 SEC (12.0-14.7)
[2017-04-10 16:14] LABS: Hep C PCR-Quant HCV Not Detected IU/mL (.)
[2017-04-10] MEDS: traZODone HCl 50 MG TAB PO SCH (21:04)
[2017-04-10] MEDS: Gabapentin 300 MG CAP PO SCH (21:04)
[2017-04-10] MEDS: traMADol HCl 50 MG TAB PO PRN (21:15)
--- NOTE | 2017-04-11 00:28 | PRG ---
DATE OF SERVICE: 04/10/2017 SUBJECTIVE: Ms. Weems's pain is better. PHYSICAL EXAMINATION: VITAL SIGNS: Temperature is 97, pulse 59, blood pressure 133/65. ABDOMEN: Soft. LABORATORY STUDIES: White count 4.6, hemoglobin 13, platelet count 67,000. Glucose 207, total bilir ubin 2, AST and ALT are 44 and 47, alkaline phosphatase 174. IMAGING STUDIES: CAT scan showed large clot in the superior mesenteric vein extending to josiah l vein, congestion changes in ascending colon and duodenum, cirrhosis, portal hypertension, splenomeg tk. ASSESSMENT: 1. Subacute thrombus in the superior mesenteric and portal vein. This is likely related to portal h ypertension from cirrhosis, rule out liver mass. We are going to get the MRI suggested by Radiology. This is the likely cause of the patient's subacute pain that began 2 weeks ago. There is no sign o f small bowel infarction. 2. Patient has thrombocytopenia and does note she bleeds quite easily. We will need to get an INR t o see what her coagulation studies are like and seriously consider anticoagulation to help dissolve c lot and open the vessel back up as this would help prevent sequelae related to progressive portal hyp ertension in the form of ascites and worsening varices and it may help preserve some hepatic function . The downside of anticoagulation obviously be risk of bleeding from varices, GI tract or intracrani al bleeding especially with slightly low platelet count. Presently, her pain is improving. There is some recanalization of the portal vein. PLAN: We will go ahead and check INR. We will ask Hematology to evaluate the patient tomorrow. We will get an MRI to make sure there is no liver mass or overt liver tumor, so no reason to anticoagula te the patient as this could be a fairly progressive process. , it may be reasonable to conside r low level anticoagulation.
[2017-04-11] MEDS: Enoxaparin Sodium 30 MG/0.3 ML SYRINGE SC SCH ×3 (03:02→20:13)
[2017-04-11] MEDS: predniSONE 50 MG TAB PO SCH ×2 (06:45→14:05)
[2017-04-11] MEDS ORDERED: diphenhydrAMINE 25 MG CAP PO SCH (07:00)
[2017-04-11] MEDS: Nadolol 40 MG TAB PO SCH (08:37)
[2017-04-11] MEDS: Saccharomyces boulardii 250 MG CAP PO SCH (08:37)
[2017-04-11] MEDS: Polyethylene Glycol 3350 17 GM Packet PO SCH (08:40)
--- NOTE | 2017-04-11 12:25 | PRG ---
DATE OF SERVICE: 04/11/2017 SUBJECTIVE: The patient is feeling better today. She is having less abdominal distention and pain. OBJECTIVE: VITAL SIGNS: Temperature 97.8, pulse 64, respiratory rate 18 and blood pressure 121/50. CHEST: Clear. CARDIOVASCULAR: Regular rate and rhythm. ABDOMEN: Protuberant and nontender. LABORATORY DATA: PT is 21.7 with an INR of 1.8. Chemistries show glucose of 265. Previous alpha-fe toprotein was 113.7. IMAGING DATA: MRI is pending. ASSESSMENT: 1. 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 2. Elevated alpha-fetoprotein - MRI of the liver is pending. 3. Cirrhosis. 4. Coagulopathy. RECOMMENDATIONS: 1. Continue anticoagulation. 2. Await MRI results.
[2017-04-11] MEDS: HumaLOG 300 UNITS/3 ML VIAL SC PRN ×3 (13:10→22:59)
--- NOTE | 2017-04-11 13:39 | PDOC.PN ---
- Subjective Encounter Start Date: 04/11/17 Encounter Start Time: 11:00 Subjective: abd pain is better, no nausea - Objective Resuscitation Status: Resuscitation Status FULL:Full Resuscitation MAR Reviewed: Yes Vital Signs & Weight: Vital Signs (12 hours) Temp Pulse Resp BP Pulse Ox 04/11/17 08:00 97.8 F 64 18 92 L 04/11/17 07:34 97.8 F 64 18 121/50 L 92 L 04/11/17 04:00 98.1 F 66 16 99/56 L 93 L Weight Admit Weight 134 lb Weight 134 lb I&O: 04/10/17 04/11/17 04/12/17 06:59 06:59 06:59 Intake Total 1120 300 100 Balance 1120 300 100 Result Diagrams: 04/10/17 08:00 04/10/17 08:00 Additional Labs: Accuchecks 04/11/17 04/11/17 04/10/17 11:04 04:32 20:22 POC Glucose 251 H 265 H 311 H 04/10/17 16:11 POC Glucose 331 H Phys Exam - Physical Examination HEENT: PERRLA, moist MMs Neck: no JVD, supple Respiratory: no wheezing, no rales Cardiovascular: RRR, no significant murmur Gastrointestinal: soft, no distention, positive bowel sounds Musculoskeletal: no edema, pulses present Neurological: non-focal, moves all 4 limbs Psychiatric: A&O x 3 Dx/Plan (1) Portal vein thrombosis Code(s): I81 - PORTAL VEIN THROMBOSIS Status: Acute (2) Abdominal pain Code(s): R10.9 - UNSPECIFIED ABDOMINAL PAIN Status: Acute Qualifiers: Abdominal location: right upper quadrant Qualified Code(s): R10.11 - Right upper quadrant pain (3) Thrombocytopenia Code(s): D69.6 - THROMBOCYTOPENIA, UNSPECIFIED Status: Chronic (4) Cirrhosis of liver with ascites Code(s): K74.60 - UNSPECIFIED CIRRHOSIS OF LIVER Status: Chronic (5) Diabetes type 2, controlled Code(s): E11.9 - TYPE 2 DIABETES MELLITUS WITHOUT COMPLICATIONS Status: Chronic Qualifiers: Diabetes mellitus complication status: with unspecified complications Diabetes mellitus custodial insulin use: with termite inspector use Qualified Code(s) : E11.8 - Type 2 diabetes mellitus with unspecified complications; Z79.4 - correction (current) use of insulin; Z79.4 - intermediate school teacher (current) use of insulin; Z79.4 - intermediate school teacher (current) use of insulin; Z79.4 - intermediate school teacher (current) use of insulin (6) Hepatitis C Code(s): B19.20 - UNSPECIFIED VIRAL HEPATITIS C WITHOUT HEPATIC COMA Status: Chronic Qualifiers: Viral hepatitis chronicity: chronic Hepatic coma status: without hepatic coma Qualified Code(s): B18.2 - Chronic viral hepatitis C - Plan inr is 1.8, is on lovenox 30mg q12h -: await mri results of liver -: on nadolol, morphine prn -: hemeonc consultation with * . Review of Systems - Medications/Allergies Allergies/Adverse Reactions: Allergies Allergy/AdvReac Type Severity Reaction Status Date / Time aspirin Allergy Verified 04/06/17 21:18 codeine Allergy Verified 04/06/17 21:18 hydrocodone Allergy Verified 04/06/17 21:18 iodine Allergy Verified 04/08/17 10:46 methylprednisolone Allergy Verified 04/06/17 21:18 [From Medrol] Sulfa (Sulfonamide Allergy Verified 04/06/17 21:18 Antibiotics) Medications: Current Medications Acetaminophen (Tylenol) 650 mg PO Q4H PRN PRN Reason: Headache/Fever or Pain Al Hydroxide/Mg Hydroxide (Maalox) 15 ml PO Q4H PRN PRN Reason: Heartburn or Indigestion Bisacodyl (Dulcolax) 5 mg PO HSPRN PRN PRN Reason: CONSTIPATION Dextrose/Water (Dextrose 50%) 25 gm SLOW IVP PRN PRN PRN Reason: Hypoglycemia Last Admin: 04/08/17 11:26 Dose: 25 gm Diphenhydramine HCl (Benadryl) 25 mg PO Q6H PRN PRN Reason: Itching & Insomnia Last Admin: 04/10/17 02:31 Dose: 25 mg Diphenhydramine HCl (Benadryl) 50 mg PO [facility] Stop: 04/11/17 15:00 Enoxaparin Sodium (Lovenox) 30 mg SC 0900,2100 [facility] Last Admin: 04/11/17 08:57 Dose: 30 mg Gabapentin (Neurontin) 600 mg PO HS [facility] Last Admin: 04/10/17 21:04 Dose: 600 mg Glucagon (Glucagon) 1 mg IM PRN PRN PRN Reason: Hypoglycemia Guaifenesin (Robitussin Sf) 200 mg PO Q4H PRN PRN Reason: Cough Hydralazine HCl (Apresoline) 10 mg SLOW IVP Q4H PRN PRN Reason: Systolic BP > 180 Dextrose/Water (D5w) 1,000 mls @ 0 mls/hr IV .Q0M PRN; As Directed PRN Reason: Hypoglycemia Insulin Human Lispro (Humalog) 0 units SC .MODERATE SLIDING SC PRN PRN Reason: Moderate Correctional Scale Last Admin: 04/11/17 13:10 Dose: 6 unit Insulin Human Lispro (Humalog) 0 units SC .BEDTIME SLIDING SC PRN PRN Reason: Bedtime Correctional Scale Last Admin: 04/10/17 21:16 Dose: 4 unit Loperamide HCl (Imodium) 2 mg PO PRN PRN PRN Reason: Diarrhea/Loose Stools Loratadine (Claritin) 10 mg PO DAILYPRN PRN PRN Reason: Sinus Symptoms Mineral Oil/White Petrolatum (Eucerin Cream) 0 gm TOP BIDPRN PRN PRN Reason: Dry Skin Morphine Sulfate (Morphine) 2 mg SLOW IVP Q4H PRN PRN Reason: Pain Last Admin: 04/09/17 10:35 Dose: 2 mg Nadolol (Corgard) 40 mg PO DAILY [facility] Last Admin: 04/11/17 08:37 Dose: 40 mg Ondansetron HCl (Zofran) 4 mg IVP Q6H PRN PRN Reason: Nausea/Vomiting Last Admin: 04/09/17 10:29 Dose: 4 mg Ondansetron HCl (Zofran Odt) 4 mg PO Q6H PRN PRN Reason: Nausea/Vomiting Pantoprazole Sodium (Protonix) 40 mg PO DAILY [facility] Last Admin: 04/11/17 08:57 Dose: 40 mg Phenol (Chloraseptic [place] 180 Ml Bot) 0 ml PO TIDPRN PRN PRN Reason: THROAT PAIN Last Admin: 04/09/17 10:10 Dose: 1 spr Polyethylene Glycol (Miralax) 17 gm PO DAILY [facility] Last Admin: 04/11/17 08:40 Dose: Not Given Saccharomyces Boulardii (Florastor) 250 mg PO DAILY [facility] Last Admin: 04/11/17 08:37 Dose: 250 mg Sodium Chloride ([place] Nasal [place] 0.65%) 0 ml EA NARE QIDPRN PRN PRN Reason: Nasal Congestion Sodium Chloride (Flush - Normal Saline) 10 ml IVF PRN PRN PRN Reason: Saline Flush Sodium Chloride (Flush - Normal Saline) 10 ml IV Q12HR [facility] Last Admin: 04/11/17 08:44 Dose: 10 ml Tramadol HCl (Ultram) 50 mg PO Q6H PRN PRN Reason: Pain Last Admin: 04/10/17 21:15 Dose: 50 mg Trazodone HCl (Desyrel) 50 mg PO HS [facility] Last Admin: 04/10/17 21:04 Dose: 50 mg
--- NOTE | 2017-04-11 19:37 | MRI ---
MRI OF THE ABDOMEN WITH AND WITHOUT IV CONTRAST 04/11/17 INDICATION: Severe stomach cramps. COMPARISON: CT of the abdomen dated 04/10/17. TECHNIQUE: Multiplanar and multisequence MR images were obtained of the abdomen with and without IV contrast uti lizing a liver mass protocol. 12 mL of Multihance was utilized for the examination. FINDINGS: There is a prominent central region of T2 hyperintensity, T1 hypointensity, restricted diffusion, and arterial enhancement involving the right hepatic lobe on image 14 of series 5, measuring 8.8 x 5.7 c m, that is suspicious for hepatocellular carcinoma. The lesion demonstrates early arterial enhancemen t with invasion of the right and left main portal vein with extension into the common portal vein wit h rapid washout. There is some bland thrombus seen within the distal portal vein and SMV. There is severe cirrhotic morphology of the liver with portal venous hypertension. The spleen measure s up to 12.2 cm. There is recanalization of umbilical vein. Congestion features of the right hemicolo n are similar to the comparison CT. Prominent ascites is noted. There is small left pleural effusion. No definite lymphadenopathy is evident. No abnormal signal abnormality is seen within the osseous st ructures. 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 More bland appearing thrombus is seen within the more distal portal vein extending into the SMV. This is consistent with an LR5V LI-RADS categorization. POS: [facility]
[2017-04-11] MEDS: traZODone HCl 50 MG TAB PO SCH ×2 (20:14→21:04)
[2017-04-11] MEDS: Gabapentin 300 MG CAP PO SCH (20:14)
--- NOTE | 2017-04-11 21:55 | CON ---
DATE OF CONSULTATION: 04/11/2017 HISTORY OF PRESENT ILLNESS: This is a 71-year-old female with a longstanding history of he patitis C and cirrhosis. Apparently, she was diagnosed with cirrhosis approximately 2 years ago. Th e hepatitis C is untreated. The patient was admitted with upper abdominal pain, nausea and vomiting. CT scan of the abdomen on 04/10/2017 showed a near complete thrombosis of the superior mesenteric v ein and portal vein. The patient also had splenomegaly. Spleen size was not given. She underwent u pper GI endoscopy on 04/08/2017 showing moderate grade II-III varices and changes of portal hypertens varinder gastropathy. No gastric varices were noted. The patient was started on Lovenox 30 mg daily. He r abdominal pain and swelling has improved. PAST MEDICAL HISTORY: Diabetes and hepatitis C. PAST SURGICAL HISTORY: Include cholecystectomy, appendectomy, and tonsillectomy. Colonoscopy during the past couple of years in was apparently normal. DRUGS WITH ADVERSE EFFECT: ASPIRIN, CODEINE, HYDROCODONE, METHYLPREDNISOLONE, and SULFA DRUGS. PERSONAL, FAMILY AND SOCIAL HISTORY: The patient does not smoke and does not drink, but she used to smoke in the past. She does not use IV drugs. She lives by herself in [place]. Her daughter lives in [place] and is planning to take her there temporarily. There is no family history of liver probl ems. REVIEW OF SYSTEMS: The patient had lost 20 pounds of weight several months ago, but seems to be gain ing that back. CURRENT MEDICATIONS: Lovenox, Neurontin, hydralazine, Corgard, Zofran, Protonix. PHYSICAL EXAMINATION: GENERAL: The patient appears appropriate for her age of 71 and is alert and oriented. VITAL SIGNS: Temperature 97.8, pulse 64, respirations 18, blood pressure 121/50. HEENT: Unremarkable. LYMPHATICS: There is no peripheral lymphadenopathy. CHEST: Clear to percussion and auscultation. HEART: S1, S2. Regular rhythm. ABDOMEN: Soft and somewhat distended. There is still some tenderness to palpation. Bowel sounds pr esent. Likely, there is some ascites. EXTREMITIES: 1+ bipedal edema. There is no calf tenderness. LABORATORY DATA: CBC shows WBC of 4600 with hemoglobin of 13.7 grams, MCV of 108, and platelet count of 67,000. Differential shows 67.3% neutrophils and 27.2% lymphocytes. Chemistry profile shows cre atinine of 0.7, total bilirubin around 2, albumin is decreased at 2.5. Alpha fetoprotein 113. Proti me is increased at 21.7 with an INR of 1.8. Hep C antibody positive. Abdominal MRI report from ankit calvin is pending. ASSESSMENT AND RECOMMENDATIONS: This patient has a large volume thrombosis of superior mesenteric an d portal vein. This seems to be acute. The patient has been started on low dose Lovenox that seems to be controlling her symptoms. I think she will have to be on anticoagulation at least for several months. This will be associated with somewhat high risk of bleeding because of thrombocytopenia and baseline prolonged protime. She could be treated with warfarin, Eliquis or Xarelto. Thanks very much for asking me to participate in this patient's care.
[2017-04-12] MEDS: HumaLOG 300 UNITS/3 ML VIAL SC PRN ×4 (06:08→20:15)
[2017-04-12] MEDS: Enoxaparin Sodium 30 MG/0.3 ML SYRINGE SC SCH ×2 (08:10→20:15)
[2017-04-12] MEDS: Nadolol 40 MG TAB PO SCH (08:10)
[2017-04-12] MEDS: Saccharomyces boulardii 250 MG CAP PO SCH (08:10)
[2017-04-12] MEDS: Polyethylene Glycol 3350 17 GM Packet PO SCH (08:10)
--- NOTE | 2017-04-12 09:40 | PRG ---
DATE OF SERVICE: 04/12/2017 SUBJECTIVE: The patient continues to complain of abdominal bloating and pressure-like discomfort. S he is tolerating diet fairly well. She has had no bowel movements. No bleeding. OBJECTIVE: VITAL SIGNS: Temperature 97.5, pulse 63, respiratory rate 18, blood pressure 98/55. CHEST: Clear. CARDIOVASCULAR: Regular rate and rhythm. ABDOMEN: Distended, diffusely tender. EXTREMITIES: Normal. LABORATORY DATA AND IMAGING: Shows glucose of 370. MRI of the liver shows a 8.8 x 5.5 cm mass suspi cious for hepatocellular carcinoma. ASSESSMENT: 1. Probable hepatocellular carcinoma within the right hepatic lobe with tumor thrombus within the ri ght and left main portal vein extending into the more proximal main portal vein and more bland coliti s seen within the distal portal vein and SMV. 2. Cirrhosis. RECOMMENDATIONS: 1. With this extension of tumor within the portal veins, she is probably not a transplant candidate considering her age and other factors. The size of the tumor would also preclude any radiofrequency ablation. Chemotherapy, possibly an option. 2. Continue anticoagulation, but this will probably be stopped. 3. Oncology opinion.
--- NOTE | 2017-04-12 13:48 | PDOC.PN ---
- Subjective Encounter Start Date: 04/12/17 Encounter Start Time: 11:30 Subjective: abd pain is better, no nausea - Objective Resuscitation Status: Resuscitation Status FULL:Full Resuscitation MAR Reviewed: Yes Vital Signs & Weight: Vital Signs (12 hours) Temp Pulse Resp BP BP Pulse Ox 04/12/17 08:10 97.5 F L 63 18 98/55 L 95 04/12/17 08:00 97.5 F L 63 18 95 04/12/17 04:00 98.1 F 67 16 122/64 93 L Weight Admit Weight 134 lb Weight 134 lb I&O: 04/11/17 04/12/17 04/13/17 06:59 06:59 06:59 Intake Total 300 500 120 Balance 300 500 120 Result Diagrams: 04/10/17 08:00 04/10/17 08:00 Additional Labs: Accuchecks 04/12/17 04/11/17 04/11/17 10:46 20:30 15:58 POC Glucose 269 H 370 H 328 H Phys Exam - Physical Examination HEENT: PERRLA, moist MMs Neck: no JVD, supple Respiratory: no wheezing, no rales Cardiovascular: RRR, no significant murmur Gastrointestinal: soft, no distention, positive bowel sounds Musculoskeletal: no edema, pulses present Neurological: non-focal, moves all 4 limbs Psychiatric: A&O x 3 Dx/Plan (1) Liver mass, right lobe Code(s): R16.0 - HEPATOMEGALY, NOT ELSEWHERE CLASSIFIED Status: Acute (2) Portal vein thrombosis Code(s): I81 - PORTAL VEIN THROMBOSIS Status: Acute (3) Abdominal pain Code(s): R10.9 - UNSPECIFIED ABDOMINAL PAIN Status: Acute Qualifiers: Abdominal location: right upper quadrant Qualified Code(s): R10.11 - Right upper quadrant pain (4) Thrombocytopenia Code(s): D69.6 - THROMBOCYTOPENIA, UNSPECIFIED Status: Chronic (5) Cirrhosis of liver with ascites Code(s): K74.60 - UNSPECIFIED CIRRHOSIS OF LIVER Status: Chronic (6) Diabetes type 2, controlled Code(s): E11.9 - TYPE 2 DIABETES MELLITUS WITHOUT COMPLICATIONS Status: Chronic Qualifiers: Diabetes mellitus complication status: with unspecified complications Diabetes mellitus terminologist insulin use: with terminologist use Qualified Code(s) : E11.8 - Type 2 diabetes mellitus with unspecified complications; Z79.4 - FPC (current) use of insulin; Z79.4 - FPC (current) use of insulin; Z79.4 - equipment operator intermodal yard (current) use of insulin; Z79.4 - FPC (current) use of insulin (7) Hepatitis C Code(s): B19.20 - UNSPECIFIED VIRAL HEPATITIS C WITHOUT HEPATIC COMA Status: Chronic Qualifiers: Viral hepatitis chronicity: chronic Hepatic coma status: without hepatic coma Qualified Code(s): B18.2 - Chronic viral hepatitis C - Plan mri shows large right lobe mass with portal vein thrombosis -: further plan per GI/Onc advice -: will get palliative care to see her -: is on lovenox 30mg sc q12h for now -: is on morphine iv and ultram po prn * . Review of Systems - Medications/Allergies Allergies/Adverse Reactions: Allergies Allergy/AdvReac Type Severity Reaction Status Date / Time aspirin Allergy Verified 04/06/17 21:18 codeine Allergy Verified 04/06/17 21:18 hydrocodone Allergy Verified 04/06/17 21:18 iodine Allergy Verified 04/08/17 10:46 methylprednisolone Allergy Verified 04/06/17 21:18 [From Medrol] Sulfa (Sulfonamide Allergy Verified 04/06/17 21:18 Antibiotics) Medications: Current Medications Acetaminophen (Tylenol) 650 mg PO Q4H PRN PRN Reason: Headache/Fever or Pain Al Hydroxide/Mg Hydroxide (Maalox) 15 ml PO Q4H PRN PRN Reason: Heartburn or Indigestion Bisacodyl (Dulcolax) 5 mg PO HSPRN PRN PRN Reason: CONSTIPATION Dextrose/Water (Dextrose 50%) 25 gm SLOW IVP PRN PRN PRN Reason: Hypoglycemia Last Admin: 04/08/17 11:26 Dose: 25 gm Diphenhydramine HCl (Benadryl) 25 mg PO Q6H PRN PRN Reason: Itching & Insomnia Last Admin: 04/10/17 02:31 Dose: 25 mg Enoxaparin Sodium (Lovenox) 30 mg SC 0900,2100 CHANO Last Admin: 04/12/17 08:10 Dose: 30 mg Gabapentin (Neurontin) 600 mg PO HS CHANO Last Admin: 04/11/17 20:14 Dose: 600 mg Glucagon (Glucagon) 1 mg IM PRN PRN PRN Reason: Hypoglycemia Guaifenesin (Robitussin Sf) 200 mg PO Q4H PRN PRN Reason: Cough Hydralazine HCl (Apresoline) 10 mg SLOW IVP Q4H PRN PRN Reason: Systolic BP > 180 Dextrose/Water (D5w) 1,000 mls @ 0 mls/hr IV .Q0M PRN; As Directed PRN Reason: Hypoglycemia Insulin Human Lispro (Humalog) 0 units SC .MODERATE SLIDING SC PRN PRN Reason: Moderate Correctional Scale Last Admin: 04/12/17 11:59 Dose: 6 unit Insulin Human Lispro (Humalog) 0 units SC .BEDTIME SLIDING SC PRN PRN Reason: Bedtime Correctional Scale Last Admin: 04/11/17 22:59 Dose: 5 unit Loperamide HCl (Imodium) 2 mg PO PRN PRN PRN Reason: Diarrhea/Loose Stools Loratadine (Claritin) 10 mg PO DAILYPRN PRN PRN Reason: Sinus Symptoms Mineral Oil/White Petrolatum (Eucerin Cream) 0 gm TOP BIDPRN PRN PRN Reason: Dry Skin Morphine Sulfate (Morphine) 2 mg SLOW IVP Q4H PRN PRN Reason: Pain Last Admin: 04/09/17 10:35 Dose: 2 mg Nadolol (Corgard) 40 mg PO DAILY [facility] Last Admin: 04/12/17 08:10 Dose: 40 mg Ondansetron HCl (Zofran) 4 mg IVP Q6H PRN PRN Reason: Nausea/Vomiting Last Admin: 04/09/17 10:29 Dose: 4 mg Ondansetron HCl (Zofran Odt) 4 mg PO Q6H PRN PRN Reason: Nausea/Vomiting Pantoprazole Sodium (Protonix) 40 mg PO DAILY [facility] Last Admin: 04/12/17 08:10 Dose: 40 mg Phenol (Chloraseptic [place] 180 Ml Bot) 0 ml PO TIDPRN PRN PRN Reason: THROAT PAIN Last Admin: 04/09/17 10:10 Dose: 1 spr Polyethylene Glycol (Miralax) 17 gm PO DAILY [facility] Last Admin: 04/12/17 08:10 Dose: Not Given Saccharomyces Boulardii (Florastor) 250 mg PO DAILY [facility] Last Admin: 04/12/17 08:10 Dose: 250 mg Sodium Chloride (Ajo Nasal [place] 0.65%) 0 ml EA NARE QIDPRN PRN PRN Reason: Nasal Congestion Sodium Chloride (Flush - Normal Saline) 10 ml IVF PRN PRN PRN Reason: Saline Flush Sodium Chloride (Flush - Normal Saline) 10 ml IV Q12HR [facility] Last Admin: 04/12/17 08:11 Dose: 10 ml Tramadol HCl (Ultram) 50 mg PO Q6H PRN PRN Reason: Pain Last Admin: 04/10/17 21:15 Dose: 50 mg Trazodone HCl (Desyrel) 50 mg PO HS [facility] Last Admin: 04/11/17 21:04 Dose: Not Given
[2017-04-12] MEDS: Gabapentin 300 MG CAP PO SCH (20:13)
[2017-04-12] MEDS: diphenhydrAMINE 25 MG CAP PO PRN (20:14)
[2017-04-12] MEDS: traZODone HCl 50 MG TAB PO SCH ×2 (21:52→23:38)
[2017-04-13] MEDS: traMADol HCl 50 MG TAB PO PRN ×4 (04:12→18:59)
[2017-04-13] MEDS: diphenhydrAMINE 25 MG CAP PO PRN ×3 (04:13→14:04)
[2017-04-13] MEDS: HumaLOG 300 UNITS/3 ML VIAL SC PRN (04:15)
[2017-04-13 06:11] LABS: PTT 37.9 SEC (22.9-36.1); Prothrombin Time 19.6 SEC (12.0-14.7)
[2017-04-13 06:22] LABS: ALT (SGPT) 50 U/L (8-55); AST (SGOT) 47 U/L (5-34); Alkaline Phosphatase 159 U/L (40-150); Anion Gap 8 mmol/L (10-20); BUN (Urea Nitrogen) 15 mg/dL (9.8-20.1); Bilirubin, Total 1.7 mg/dL (0.2-1.2); Calc. Creatinine Clearance 71 mL/min (70-130); Carbon Dioxide 25 mmol/L (23-31); Chloride 108 mmol/L (98-107); Estimated GFR-MDRD 82; Globulin 2.8 g/dL (2.4-3.5); Protein, Total 5.1 g/dL (6.0-8.3)
[2017-04-13 06:32] LABS: Band 1 % (5-11); Hematocrit 38.9 % (36.0-47.0); Macrocytosis MODERATE=16-30 cells (100X) (0-5/hpf); Mean Platelet Volume 6.8 fL (7.4-10.4); Neutrophil 60 % (42-75); Reactive Lymphocytes 1 % (0-10); Red Blood Cell (RBC) Count 3.57 mill/uL (4.20-5.40); White Blood Cell (WBC) Count 6.8 thou/uL (4.8-10.8)
[2017-04-13] MEDS: Polyethylene Glycol 3350 17 GM Packet PO SCH (07:50)
[2017-04-13] MEDS: Saccharomyces boulardii 250 MG CAP PO SCH (07:50)
[2017-04-13] MEDS: Nadolol 40 MG TAB PO SCH (07:50)
[2017-04-13 08:00] VITALS: BP 118/62; TEMP 98
[2017-04-13] MEDS: Enoxaparin Sodium 30 MG/0.3 ML SYRINGE SC SCH (09:02)
--- NOTE | 2017-04-13 12:26 | PDOC.PN ---
- Subjective Encounter Start Date: 04/13/17 Encounter Start Time: 07:45 Subjective: no nausea or abd pain now -: no diarrhea, is amb in room and hallway -: is aware of mass in right lobe liver - Objective Resuscitation Status: Resuscitation Status FULL:Full Resuscitation MAR Reviewed: Yes Vital Signs & Weight: Vital Signs (12 hours) Temp Pulse Resp BP Pulse Ox 04/13/17 08:00 98.0 F 59 L 20 96 04/13/17 07:59 98.0 F 59 L 20 118/62 92 L Weight Admit Weight 134 lb Weight 134 lb I&O: 04/12/17 04/13/17 04/14/17 06:59 06:59 06:59 Intake Total 500 600 Balance 500 600 Result Diagrams: 04/13/17 05:54 04/13/17 05:54 Additional Labs: Accuchecks 04/13/17 04/13/17 04/12/17 11:12 04:15 19:16 POC Glucose 149 H 165 H 204 H 04/12/17 04/12/17 15:41 04:57 POC Glucose 214 H 326 H Phys Exam - Physical Examination HEENT: PERRLA, moist MMs Neck: no JVD, supple Respiratory: no wheezing, no rales Cardiovascular: RRR, no significant murmur Gastrointestinal: soft, positive bowel sounds ruq tender to palpate, no rigidity or guarding Musculoskeletal: no edema, pulses present Neurological: non-focal, moves all 4 limbs Psychiatric: A&O x 3 Dx/Plan (1) Liver mass, right lobe Code(s): R16.0 - HEPATOMEGALY, NOT ELSEWHERE CLASSIFIED Status: Acute (2) Portal vein thrombosis Code(s): I81 - PORTAL VEIN THROMBOSIS Status: Acute (3) Abdominal pain Code(s): R10.9 - UNSPECIFIED ABDOMINAL PAIN Status: Acute Qualifiers: Abdominal location: right upper quadrant Qualified Code(s): R10.11 - Right upper quadrant pain (4) Thrombocytopenia Code(s): D69.6 - THROMBOCYTOPENIA, UNSPECIFIED Status: Chronic (5) Cirrhosis of liver with ascites Code(s): K74.60 - UNSPECIFIED CIRRHOSIS OF LIVER Status: Chronic (6) Diabetes type 2, controlled Code(s): E11.9 - TYPE 2 DIABETES MELLITUS WITHOUT COMPLICATIONS Status: Chronic Qualifiers: Diabetes mellitus complication status: with unspecified complications Diabetes mellitus long term care phlebotomist insulin use: with custodial use Qualified Code(s) : E11.8 - Type 2 diabetes mellitus with unspecified complications; Z79.4 - assisted (current) use of insulin; Z79.4 - assisted (current) use of insulin; Z79.4 - ferry terminal agent (current) use of insulin; Z79.4 - ferry terminal agent (current) use of insulin (7) Hepatitis C Code(s): B19.20 - UNSPECIFIED VIRAL HEPATITIS C WITHOUT HEPATIC COMA Status: Chronic Qualifiers: Viral hepatitis chronicity: chronic Hepatic coma status: without hepatic coma Qualified Code(s): B18.2 - Chronic viral hepatitis C - Plan right liver mass and anticoag per GI advice -: dc plan per advice -: Onc has signed off per Ms.Julie Sanchez -: inr is 1.6 was 1.8 before lovenox q12h -: suggest low dose xarelto/pradaxa/eliquis if no procedures are planned * .
--- NOTE | 2017-04-14 03:43 | DIS ---
DATE OF ADMISSION: 04/06/2017 DATE OF DISCHARGE: 04/13/2017 DISCHARGE DISPOSITION: To home. PRIMARY DISCHARGE DIAGNOSES: Right lobe liver mass suspicious for hepatoma, portal vein thrombosis s econdary to above, abdominal pain secondary to liver mass, cirrhosis with ascites, chronic hepatitis C, diabetes mellitus type 2. PROCEDURES DONE DURING HOSPITALIZATION: The patient has had an upper endoscopy done by Dr. Daniel matamoros on 04/08/2017, which showed moderate grade 2-3 varices with a few red signs, moderate portal hyp ertensive gastropathy was seen. No gastric varices were seen. CT liver protocol done with and witho ut contrast done showed large volume thrombosis of the superior mesenteric vein extending to the port al vein with cavernous transformation of the portal vein, congestive changes of the ascending colon a nd duodenum were seen, cirrhosis, portal hypertension, and splenomegaly were also seen. MRI done malissa wed findings consistent with a large hepatocellular carcinoma within the right hepatic lobe with tumo r thrombus within the right and left main portal vein extending into the proximal main portal vein, m ore bland-appearing thrombus was seen within the more distal portal vein extending into superior mese nteric vein. H and H 12 and 38, platelet count is 70, MCV is 109. INR 1.6 this morning. BUN 15, cr eatinine 0.7. Tumor marker AFP levels were 113. Total bilirubin 1.6, AST is 47, ALT 38, alkaline ph osphatase 160, albumin is 2.5. DISCHARGE MEDICATIONS: Albuterol inhaler q. 8 hourly p.r.n., gabapentin 600 mg p.o. at bedtime, nado lol 40 mg p.o. daily, Ultram p.r.n. for pain, trazodone 50 mg p.o. at bedtime. ALLERGIES: ASPIRIN, CODEINE, HYDROCODONE, IODINE, METHYLPREDNISOLONE, and SULFA. INPATIENT CONSULTS: Dr. Howard for Gastroenterology, Dr. Sanches for Oncology. DISCHARGE PLAN: The patient to follow up with Dr. Howard as advised and she also needs to follow up with Oncology with the oncologist in the [place] area. BRIEF COURSE DURING HOSPITALIZATION: The patient initially got admitted for complaints of abdominal pain in the right upper quadrant. This has been ongoing for 2 weeks or so. She has had an upper end oscopy done, the results as described above. Her AFP was elevated. She has had MRI liver protocol d one, which showed large right hepatic mass with portal venous thrombosis and superior mesenteric vein thrombosis as well. Her overall prognosis was poor. She was initially on anticoagulation which was discontinued after discovering her right lobe mass. Dr. Howard will be talking to the patient's sergio ter as the patient is going to join her in [facility]. She will likely need to follow up with [facility] oncologist in the [place] area. Please see a [id number] documentation on [facility] for the day of discharge.
--- NOTE | 2017-04-14 06:25 | PRG ---
DATE OF SERVICE: 04/13/2017 SUBJECTIVE: Ms. Weems still has a scant bit of epigastric pain. OBJECTIVE: VITAL SIGNS: Temperature is 98, pulse 69, blood pressure 118/62. LUNGS: Clear. ABDOMEN: Soft, slightly protuberant. No masses, nontender. EXTREMITIES: Revealed no edema. LABORATORY STUDIES: White count 6.8, hemoglobin 12.8, platelet count 70,000. INR is 1.6. Chemistry : Bilirubin 1.7, AST 57, ALT 50, alkaline phosphatase 159, albumin 2.3. AFP was 113. Hep C RNA is not detected. IMAGING: CT showed a clot in the superior mesenteric vein, portal venous system with some cavernous transformation of the portal vein and portal hypertensive changes in the duodenum and the ascending c olon. MRI shows cirrhotic liver, recanalization umbilical vein, permanent lesion with arterial enhan cement on the right hepatic lobe measuring 8.5 x 5.7 cm, it was felt to be a hepatocellular carcinoma invasive right and left main portal vein extensions and the common portal vein, some bland thrombus seen within the distal portal vein SMV. ASSESSMENT: The patient presented with subacute abdominal pain for about a week and a half when she was admitted last week that turned out to be related to acute thrombosis, probably related to portal vein thrombosis which is secondary to the hepatocellular carcinoma seen on the MRI. She is not a can didate for liver transplant in this setting, would not be a candidate I think for even , althoug h that decision would be made by Hepatology program. In light of the tumor ingrowth into the portal vein actually I do not think that anticoagulation is indicated or safe so we decided to stop that. Af ter I had a long discussion with patient and her daughter today with regard to these findings, lack o f any really good treatments for this tumor, and the fact this is likely going to be a terminal event , although it is not clear when as her liver function is quite stable and prognosis and hepatocellula r carcinoma usually depends on liver function. PLAN: She can go home today with some pain medications, I think it is reasonable. We are going to g et an outpatient follow up with Hepatology in [place] to see if they have anything else to offer; if not, I told her and her daughter that if she returns we will be more than happy to take care of her, along with Oncology here, we could offer Nexavar and care directed at quality of life. I will talk w ith Radiology directly tomorrow with regard to the question of long-term anticoagulation, but again a t this time I feel that probably the risks outweigh the benefits that offers.
== END 2017-04-13 20:02 | disposition home or self-care (01) | DRG 435 ==
LOC: ERS 17:32 → T4-A 20:28
PROVIDERS: ADMIT Internal Medicine; ATTEND Internal Medicine
PROC: 0DJ08ZZ Inspection of Upper Intestinal Tract, Via Natural or Artificial Opening Endoscopic (ICD-10-PCS; principal; 2017-04-08)
DX: C22.0 Liver cell carcinoma (principal); I81 Portal vein thrombosis; R18.8 Other ascites; K76.6 Portal hypertension; D69.6 Thrombocytopenia, unspecified; I85.10 Secondary esophageal varices without bleeding; J44.9 Chronic obstructive pulmonary disease, unspecified; R16.1 Splenomegaly, not elsewhere classified; K31.89 Other diseases of stomach and duodenum; K74.60 Unspecified cirrhosis of liver; E11.9 Type 2 diabetes mellitus without complications; K52.9 Noninfective gastroenteritis and colitis, unspecified; K59.00 Constipation, unspecified; Z88.5 Allergy status to narcotic agent; Z88.2 Allergy status to sulfonamides; Z88.6 Allergy status to analgesic agent; Z91.041 Radiographic dye allergy status; Z87.891 Personal history of nicotine dependence; B18.2 Chronic viral hepatitis C; Z79.4 Long term (current) use of insulin; K29.80 Duodenitis without bleeding; D75.89 Other specified diseases of blood and blood-forming organs; Z51.5 Encounter for palliative care; G47.00 Insomnia, unspecified
CPT/HCPCS: 36415; 36416; 74170; 74183; 80053; 80074; 82105; 82274; 85025; 85610; 85730; 87015; 87045; 87046; 87324; 87328; 87329; 87449; 87522; 87899; 96374; A4216; C9113; J1650; J1815; J1956; J2001; J2270; J2405; J2543; J3010; J7050; S0028